=== PATIENT | male | born 1970 | race Hispanic/Latino ===

== ENCOUNTER 2023-01-22 03:03 | Emergency (ER) | payer SELFPAY ==
--- OUTSIDE RECORDS SUMMARY | 2023-01-22 03:06 | XMS REPORT | Continuity of Care Document ---
:1970 Author Organization [facility] t Address [address] [place] [address] [place] [id number] Care Team Providers Name Role Phone PCP, PATIENT DOES NOT HAVE A Primary Care Physician TONO Kiran Attending Clinician Unavailable Arnaldo Attending Clinician Unavailable Tono Garcia Attending Clinician [phone] LOREN BERGMAN Attending Clinician Unavailable TONO GARCIA Admitting Clinician Unavailable Arnaldo Admitting Clinician Unavailable Payers Payer Name Policy Type Policy Number Effective Date Expiration Date S ourvic 0191 [id number] 1959 00:00:00 [employer] [id number] 2022 [facility] 00:00:00 COMMERCIAL [id number] 2021 NON-CONTRACT 00:00:00 GENERIC Problems Condition Condition Condition Status Onset Resolution Last Treating Co mments Source Name Details Category Date Date Treatment Clinician Date Bilateral Bilateral Problem Active Aza mauricio osteoarthr Osteoarthr 05-09 Or thope itis of itis of 00:00: dic knees Knees 00 Sports Medicin e Allergies, Adverse Reactions, Alerts Allergy Allergy Status Severity Reaction(s) Onset Inactive Treating Comm ents Source Name Type Date Date Clinician NO KNOWN Drug Active [facility] Medications Ordered Filled Start Stop Current Ordering Indication Dosage Frequency Signature Comments Components Source Medication Medication Date Date Medication? Clinician (SIG) Name Name ID NOW ID NOW No ID NOW Izabela COVID-19 COVID-19 COVID-19 Ort hope Test Kit Test Kit Test Kit dic TEST TEST TEST Sports DIRECTED DIRECTED DIRECTED Med icin TODAY TODAY TODAY e Procedures Procedure Date / Time Performed Performing Clinician [facility] e XR, knee, 3 view 2022-05-09 00:00:00 Izabela Orth opedic Sports Medicine Encounters Start End Encounter Admission Attending Care Care Encounter Source Date/Time Date/Time Type Type Clinicians Facility Department ID 2022-05-14 2022-07-12 Outpatient TONO MILLER [id number] [place] 14:55:00 23:59:00 [facility] 2022-05-10 2022-05-10 Outpatient FOG_Lyu_Kev AOSM AOSM [id number] Izabela 00:00:00 00:00:00 Rosmery [id number] Orthop e dic Sports Medicin e 2022-05-09 2022-05-09 Outpatient FOG_Lyu_Kev AOSM AOSM [id number] Izabela 00:00:00 00:00:00 Rosmery [id number] Orthop e dic Sports Medicin e 2022-05-09 2022-05-09 Tono Muniz [facility] [place] - Ortho [id number] Izabela 00:00:00 00:00:00 MD Kendall: Jordana gómez [id number] [facility], [place] [place] [address] , Ph. [phone] 2022-05-09 2022-05-09 [id number]00 00:00:00 W [id number] 2022-05-03 2022-05-03 Outpatient FOG_Lyu_Kev AOSM AO [id number] Izabela 00:00:00 00:00:00 Rosmery [id number] Orthop e dic Sports Medicin e 2021-11-24 2021-11-24 Outpatient Ceci BERGMAN [facility] [id number] Univers 20:40:00 20:45:30 LOREN holguin [facility] Results This patient has no known results.
[2023-01-22] MEDS ORDERED: KETOROLAC 30 MG/ML INJ ONE (03:47)
[2023-01-22] MEDS ORDERED: KETAMINE HCL IN 0.9 % NACL 50 MG/5 ML SYRINGE IV ONE (04:44)
--- NOTE | 2023-01-22 05:10 | ER ---
Nurse's Notes [facility] Name: Guillermo López Age: 52 yrs Sex: Male : 1970 Arrival Date: 01/22/2023 Time: 03:03 Bed 6 Private MD: Diagnosis: Pain in right shoulder Presentation: 01/22 03:32 Chief complaint: Patient states: "I rolled over and felt my arm pop. It has done this a vc1 few times before". Coronavirus screen: Vaccine status: Patient reports receiving the 2nd dose of the covid vaccine. Moderna At this time, the client does not indicate any symptoms associated with coronavirus-19. Ebola Screen: Patient negative for fever greater than or equal to 101.5 degrees Fahrenheit, and additional compatible Ebola Virus Disease symptoms Patient denies exposure to infectious person. Patient denies travel to an Ebola-affected area in the 21 days before illness onset. No symptoms or risks identified at this time. Initial Sepsis Screen: Does the patient meet any 2 criteria? No. Patient's initial sepsis screen is negative. Does the patient have a suspected source of infection? No. Patient's initial sepsis screen is negative. Risk Assessment: Do you want to hurt yourself or someone else? Patient reports no desire to harm self or others. Onset of symptoms was January 22, 2023 at 02:50. 03:32 Method Of Arrival: Ambulatory vc1 03:32 Acuity: JOCELYN 3 vc1 Historical: - Allergies: 03:36 No Known Allergies; vc1 - Home Meds: 03:36 None [Active]; vc1 - PMHx: 03:36 None; vc1 - PSHx: 03:36 None; vc1 - Immunization history:: Client reports receiving the 2nd dose of the Covid vaccine. - Social history:: Smoking status: Patient denies any tobacco usage or history of. - Family history:: not pertinent. Screenin:38 [facility] ED Fall Risk Assessment (Adult) History of falling in the last 3 months, vc1 including since admission No falls in past 3 months (0 pts) Confusion or Disorientation No (0 pts) Intoxicated or Sedated Yes (3 pts) Impaired Gait No (0 pts) Mobility Assist Device Used No (0 pt) Altered Elimination No (0 pt) Score/Fall Risk Level 0 - 2 = Low Risk Oriented to surroundings, Maintained a safe environment, Educated pt \\T\\ family on fall prevention, incl call for assistance when getting out of bed. Abuse screen: Denies threats or abuse. Nutritional screening: No deficits noted. Tuberculosis screening: No symptoms or risk factors identified. Assessment: 03:48 General: Appears in no apparent distress. comfortable, Behavior is calm, cooperative, jb4 agitated. Pain: Complains of pain in anterior aspect of right shoulder Pain does not radiate. Pain currently is 10 out of 10 on a pain scale. Neuro: Level of Consciousness is awake, alert, obeys commands. Cardiovascular: Patient's skin is warm and dry. Respiratory: Airway is patent Respiratory effort is even, unlabored, Respiratory pattern is regular, symmetrical. GI: No signs and/or symptoms were reported involving the gastrointestinal system. : No signs and/or symptoms were reported regarding the genitourinary system. EENT: No signs and/or symptoms were reported regarding the EENT system. Derm: Skin is intact, Skin is pink, warm \\T\\ dry. 05:01 Reassessment: Patient appears in no apparent distress at this time. Patient and/or jb4 family updated on plan of care and expected duration. Pain level reassessed. Patient is alert, oriented x 3, equal unlabored respirations, skin warm/dry/pink. Vital Signs: 03:32 BP 128 / 78; Pulse 60; Resp 17; Temp 98.1; Pulse Ox 100% ; Weight 76.66 kg; Pain 10/10; vc1 05:01 BP 129 / 93; Pulse 75; Resp 16; Pulse Ox 97% on R/A; jb4 03:32 Pain Scale: Adult vc1 ED Course: 03:04 Patient arrived in ED. jj6 03:11 Aurelio Ibrahim MD is Attending Physician. rt 03:36 Triage completed. vc1 03:36 Inserted saline lock: 18 gauge in left antecubital area, using aseptic technique. ds4 03:48 Mayco Metcalf, JALYN is Primary Nurse. jb4 03:52 Arm band placed on left wrist. vc1 04:14 Shoulder Right (2 View) XRAY In Process Unspecified. EDMS 05:04 Shoulder Right (2 View) XRAY In Process Unspecified. EDMS 05:08 Cuauhtemoc Sargent MD is Referral Physician. rt 05:28 No provider procedures requiring assistance completed. IV discontinued, intact, jb4 bleeding controlled, No redness/swelling at site. Pressure dressing applied. Administered Medications: 03:43 Drug: Ketorolac IVP 30 mg Route: IVP; Site: left antecubital; jb4 04:10 Follow up: Response: No adverse reaction; Marked relief of symptoms jb4 04:40 Drug: Ketamine IVP 75 mg Route: IVP; Site: left antecubital; jb4 05:01 Follow up: Response: No adverse reaction; Marked relief of symptoms jb4 Outcome: 05:09 Discharge ordered by . rt 05:28 Discharged to home ambulatory, with friend. jb4 05:28 Condition: stable 05:28 Discharge instructions given to patient, Instructed on discharge instructions, follow up and referral plans. Demonstrated understanding of instructions, follow-up care. 05:29 Patient left the ED. jb4 Signatures: Dispatcher [employer] EDMS Ryley Elam ds4 Mayco Metcalf RN RN jb4 Rosy Degrootj6 Megan Doyle RN RN vc1 Aurelio Ibrahim MD MD rt
--- NOTE | 2023-01-22 05:10 | EDPHYS ---
Physician Documentation [facility] Name: Guillermo López Age: 52 yrs Sex: Male : 1970 Arrival Date: 01/22/2023 Time: 03:03 Bed 6 Private MD: ED Physician Aurelio Ibrahim HPI: 01/22 05:16 This 52 yrs old Male presents to ER via Ambulatory with complaints of Shoulder rt Pain, Neck and Upper Back Pain. 05:16 The patient or guardian complains of deformity. Patient presents to the ED with a rt dislocation to the right shoulder. This happened 2 times previously. This occurred overnight when he rolled over. He does report pain that is aching in nature, nonradiating to that region. Denies other acute complaints at this time. Symptoms are moderate severity, no other aggravating alleviating factors.. Historical: - Allergies: 03:36 No Known Allergies; vc1 - Home Meds: 03:36 None [Active]; vc1 - PMHx: 03:36 None; vc1 - PSHx: 03:36 None; vc1 - Immunization history:: Client reports receiving the 2nd dose of the Covid vaccine. - Social history:: Smoking status: Patient denies any tobacco usage or history of. - Family history:: not pertinent. ROS: 05:16 Constitutional: Negative for fever, chills, and weight loss, Cardiovascular: Negative rt for chest pain, palpitations, and edema, Respiratory: Negative for shortness of breath, cough, wheezing, and pleuritic chest pain, Abdomen/GI: Negative for abdominal pain, nausea, vomiting, diarrhea, and constipation, Skin: Negative for injury, rash, and discoloration, Neuro: Negative for headache, weakness, numbness, tingling, and seizure, Psych: Negative for depression, anxiety, suicide ideation, homicidal ideation, and hallucinations. 05:16 MS/extremity: Positive for injury or acute deformity, pain. Exam: 05:16 Constitutional: This is a well developed, well nourished patient who is awake, alert, rt and in no acute distress. Head/Face: Normocephalic, atraumatic. Chest/axilla: Normal chest wall appearance and motion. Nontender with no deformity. No lesions are appreciated. Cardiovascular: Regular rate and rhythm with a normal S1 and S2. No gallops, murmurs, or rubs. Normal PMI, no JVD. No pulse deficits. Respiratory: Lungs have equal breath sounds bilaterally, clear to auscultation and percussion. No rales, rhonchi or wheezes noted. No increased work of breathing, no retractions or nasal flaring. Abdomen/GI: Soft, non-tender, with normal bowel sounds. No distension or tympany. No guarding or rebound. No evidence of tenderness throughout. 05:16 Musculoskeletal/extremity: Obvious deformity noted to the right shoulder with tenderness to that region, no other swelling, deformities, pulses, motor, sensation intact.. Vital Signs: 03:32 BP 128 / 78; Pulse 60; Resp 17; Temp 98.1; Pulse Ox 100% ; Weight 76.66 kg; Pain 10/10; vc1 05:01 BP 129 / 93; Pulse 75; Resp 16; Pulse Ox 97% on R/A; jb4 03:32 Pain Scale: Adult vc1 Procedures: 05:16 Reduction: of the right shoulder, using traction, External rotation, Immobilized with rt sling, Patient tolerated well. Post reduction film - reveals normal alignment. 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 MDM: 03:28 Patient medically screened. rt 05:16 Differential diagnosis: Fracture, dislocation, arthritis. Data reviewed: vital signs, rt nurses notes, radiologic studies. Independent interpretation of the following test(s) in the Emergency Department X-Ray: My interpretation is Dislocation noted on my interpretation of the initial x-ray image, normal alignment on repeat film.. Counseling: I had a detailed discussion with the patient and/or guardian regarding: the historical points, exam findings, and any diagnostic results supporting the discharge/admit diagnosis, radiology results, the need for outpatient follow up. Response to treatment: the patient's symptoms have resolved after treatment. 01/22 03:32 Order name: Shoulder Right (2 View) XRAY rt 01/22 04:46 Order name: Shoulder Right (2 View) XRAY rt Administered Medications: 03:43 Drug: Ketorolac IVP 30 mg Route: IVP; Site: left antecubital; jb4 04:10 Follow up: Response: No adverse reaction; Marked relief of symptoms jb4 04:40 Drug: Ketamine IVP 75 mg Route: IVP; Site: left antecubital; jb4 05:01 Follow up: Response: No adverse reaction; Marked relief of symptoms jb4 Disposition Summary: 01/22/23 05:09 Discharge Ordered Location: Home rt Problem: an acute exacerbation rt Symptoms: are resolved rt Condition: Stable rt Diagnosis - Pain in right shoulder rt Followup: rt - With: Cuauhtemoc Sargent MD - When: 5 - 6 days - Reason: Discharge Instructions: - Discharge Summary Sheet rt - Shoulder Dislocation rt - Moderate Conscious Sedation, Adult, Care After rt Forms: - Medication Reconciliation Form rt - Thank You Letter rt - Antibiotic Education rt - Prescription Opioid Use rt Signatures: Dispatcher [employer] Mayco Saenz RN RN jb4 Megan Doyle RN RN vc1 Aurelio Ibrahim MD MD rt
[2023-01-22 05:48] VITALS: TEMP 98.1
[2023-01-22 05:53] VITALS: BP 129/93; O2SAT 97
--- NOTE | 2023-01-22 11:32 | RAD REPORT ---
EXAM DESCRIPTION: XR Right Shoulder Complete, 2 or More Views CLINICAL HISTORY: The patient is 52 years old and is Male; PAIN TECHNIQUE: Two views of the right shoulder. COMPARISON: No relevant prior studies available. FINDINGS: Bones/joints: Anterior dislocation right glenohumeral joint. Hill-Sachs fracture of unde termined age. Mild degenerative changes in the right acromioclavicular joint. Soft tissues: Unremarkable. IMPRESSION: 1. Anterior dislocation, right shoulder. 2. Hill-Sachs fracture of undetermined age. Electronically signed by: Selena Haji MD 01/22/2023 4:54 AM CDT Due to temporary technical issues with the PACS/Fluency reporting system, reports are being signed by the in house radiologist without review as a courtesy to ensure prompt reporting. The interpreting r adiologist is fully responsible for the content of the report.
--- NOTE | 2023-01-22 11:33 | RAD REPORT ---
EXAM DESCRIPTION: XR Right Shoulder Complete, 2 or More Views CLINICAL HISTORY: The patient is 52 years old and is Male; post reduction TECHNIQUE: Two views of the right shoulder. COMPARISON: January 22, 2023 4:08 AM FINDINGS: Bones/joints: Anterior right shoulder dislocation is reduced. Small Hill-Sachs fracture of undetermined age. Mild AC joint arthropathy. Soft tissues: Unremarkable. IMPRESSION: Anterior right shoulder dislocation is reduced. Small Hill-Sachs fracture of undetermine d age. Electronically signed by: Selena Haji MD 01/22/2023 5:17 AM CDT Due to temporary technical issues with the PACS/Fluency reporting system, reports are being signed by the in house radiologist without review as a courtesy to ensure prompt reporting. The interpreting r adiologist is fully responsible for the content of the report.
== END 2023-01-22 05:29 | disposition home or self-care (01) ==
LOC: ER 03:03
PROC: 0RSJXZZ Reposition Right Shoulder Joint, External Approach (ICD-10-PCS; principal; 2023-01-22)
DX: S43.004A Unspecified dislocation of right shoulder joint, initial encounter (principal)
CPT/HCPCS: 96374; 96375; 99284